=== PATIENT | male | born 1980 | race Caucasian/White ===

== ENCOUNTER 2017-05-17 00:57 | Emergency (ER) | payer OTHER ==
[~2017-05-17] VITALS: Ht 180.3 cm; Wt 83.9 kg
[2017-05-17 01:40] VITALS: BP 129/85
[2017-05-17 02:35] LABS: Hepatitis B Surface Antibody Positive
== END 2017-05-17 04:52 | disposition home or self-care (01) ==
LOC: ER 00:57
DX: Z77.21 Contact with and (suspected) exposure to potentially hazardous body fluids (principal); E11.9 Type 2 diabetes mellitus without complications; E78.5 Hyperlipidemia, unspecified; I10 Essential (primary) hypertension
CPT/HCPCS: 36415; 86703; 86706; 86803; 87340